=== PATIENT | female | born 1955 | race Caucasian/White ===

== ENCOUNTER 2018-10-04 15:09 | Emergency (ER) | payer BC ==
[~2018-10-04] VITALS: Ht 160 cm; Wt 74.4 kg
== END 2018-10-04 17:44 | disposition home or self-care (01) ==
LOC: ED 15:09
DX: S62.616A Displaced fracture of proximal phalanx of right little finger, initial encounter for closed fracture (principal); W18.39XA Other fall on same level, initial encounter; Y93.89 Activity, other specified; Y92.89 Other specified places as the place of occurrence of the external cause; Y99.8 Other external cause status